=== PATIENT | male | born 1970 | race African-American/Black ===

== ENCOUNTER 2022-02-03 12:43 | Emergency (ER) | payer SELFPAY ==
[~2022-02-03] VITALS: Ht 177.8 cm; Wt 98.6 kg
[~2022-02-03 12:43] MED LIST: ACET-2066 PO; CETI10CA PO; INSU100I17 SQ; INSU100I27 SQ; LISI20TA18 PO; METO50TA29 PO; TRIA1TAB5 PO
[2022-02-03] MEDS ORDERED: ASPIRIN CHEWABLE 81 MG TABLET. ONE (13:14)
[2022-02-03] MEDS ORDERED: NITROGLYCERIN SUBLINGUAL 0.4 MG BOTTLE OF 25. SL ONE (13:14)
[2022-02-03] MEDS ORDERED: HEPARIN 25,000UTS/250ML PREMIX 250 ML IV ONE (13:14)
[2022-02-03] MEDS ORDERED: HEPARIN 25,000UTS/250ML PREMIX 250 ML IV PRN (13:15)
[2022-02-03] MEDS ORDERED: ASPIRIN CHEWABLE 81 MG TABLET. PO ONE (13:15)
[2022-02-03] MEDS ORDERED: HEPARIN for IV BOLUS 10,000 UNIT/10 ML VIAL. IV PRN (13:15)
[2022-02-03] MEDS ORDERED: HEPARIN for IV BOLUS 10,000 UNIT/10 ML VIAL. IV ONE (13:15)
[2022-02-03] MEDS ORDERED: NITROGLYCERIN SUBLINGUAL 0.4 MG BOTTLE OF 25. SL PRN (13:15)
[2022-02-03 13:21] VITALS: BP 202/112
[2022-02-03 13:28] LABS: BASO # 0.1 x10^3/uL (0.0-0.2); BASO % 1 % (0-3); EOS # 0.1 x10^3/uL (0.0-0.7); EOS % 1 % (0-3); HEMATOCRIT 35.9 % (39.0-53.0); HEMOGLOBIN 11.5 g/dL (13.0-17.5); LYMPH # 1.3 x10^3/uL (1.0-4.8); LYMPH % 13 % (24-48); MEAN CORPUSCULAR HEMOGLOBIN 26 pg (25-35); MEAN CORPUSCULAR HGB CONC 32 g/dL (31-37); MEAN CORPUSCULAR VOLUME 81 fL (79-100); MONO # 0.5 x10^3/uL (0.0-1.1); MONO % 5 % (0-9); NEUT # 7.9 x10^3uL (1.8-7.7); NEUT % 80 % (31-73); PLATELET COUNT 376 x10^3/uL (140-400); RED BLOOD COUNT 4.42 x10^6/uL (4.30-5.70); RED CELL DISTRIBUTION WIDTH 14.4 % (11.5-14.5); WHITE BLOOD COUNT 9.9 x10^3/uL (4.0-11.0)
[2022-02-03 13:35] LABS: CALCIUM 9.1 mg/dL (8.5-10.1); CREATININE 2.1 mg/dL (0.7-1.3); GFR 40.2; POTASSIUM 5.6 mmol/L (3.5-5.1)
[2022-02-03 13:41] LABS: ALBUMIN 3.1 g/dL (3.4-5.0); ALBUMIN/GLOBULIN RATIO 0.8 (1.0-1.7); TOTAL BILIRUBIN 0.2 mg/dL (0.2-1.0); TOTAL PROTEIN 6.9 g/dL (6.4-8.2)
--- NOTE | 2022-02-03 13:44 | PHYS DOC ---
General Adult EDM: Chief Complaint: HYPERTENSION HPI: HPI: Patient is a 51-year-old male who presents to the emergency department today for multiple complaints. Patient reports that he was outside picking up a heavy trash can when he started experiencing midsternal chest tightness that lasted approximately 45 minutes. He also reports feeling lightheaded, diaphoretic and nauseous and had an episode of vomiting. Patient believes that his blood sugar was low so he went in and ate food. He reports that his chest pain resolved but he is now experiencing epigastric abdominal pain. He states that the lightheadedness and the nausea has resolved. He denies any fevers. He rates his pain 7 out of 10. He reports that EMS was called for his chest pain and an EKG was performed which he stated they reported was normal. Patient does have a history of hypertension and takes triamterene and lisinopril. He is also diabetic and takes Tresiba and NovoLog. Patient's blood pressure is elevated in the ER. (SILVER BENITEZ APRN) Review of Systems: Review of Systems: Constitutional: See HPI Eyes: Denies change in visual acuity HENT: Denies nasal congestion or sore throat Respiratory: See HPI Cardiovascular: See HPI GI: See HPI : Denies dysuria Musculoskeletal: Denies back pain or joint pain Integument: Denies rash Neurologic: See HPI Endocrine: Denies polyuria or polydipsia Lymphatic: Denies swollen glands Psychiatric: Denies depression or anxiety (SILVER BENITEZ APRN) Current Medications: Current Meds: Current Medications Medications (Trade) Dose Ordered Sig/Kwame Start Time Stop Time Status Last Admin Dose Admin Aspirin (Aspirin Chewable) 324 mg 1X ONCE 02/03/22 13:15 02/03/22 13:29 DC 02/03/22 13:20 324 MG Heparin Sodium (Porcine) (Heparin Sodium) 2,450 unit PRN Q6HRS PRN 02/03/22 13:15 Heparin Sodium/ Dextrose 250 ml @ 10 mls/hr CONT PRN 02/03/22 13:15 02/03/22 13:28 10 MLS/HR Nitroglycerin (Nitrostat) 0.4 mg PRN Q5MIN PRN 02/03/22 13:15 02/04/22 13:14 02/03/22 13:21 0.4 MG (ELI,SILVER L ANESTHESIA DIRECTOR) Allergies: Allergies: Allergies Coded Allergies Type Severity Reaction Last Updated Verified Penicillins Allergy Intermediate 11/07/16 Yes (SILVER BENITEZ APRN) Physical Exam: PE: Constitutional: Well developed, well nourished, no acute distress, non-toxic appearance. [] HENT: Normocephalic, atraumatic, bilateral external ears normal, oropharynx moist, no oral exudates, nose normal. [] Eyes: PERRL, EOMI, conjunctiva normal, no discharge. [] Neck: Normal range of motion, no tenderness, supple, no stridor. [] Cardiovascular:Heart rate tachycardic rhythm, no murmur [] Lungs & Thorax: Bilateral breath sounds clear to auscultation [] Abdomen: Bowel sounds normal, soft, no tenderness, no masses, no pulsatile masses. [] Skin: Warm, dry, no erythema, no rash. [] Back: No tenderness, normal range of motion Extremities: No tenderness, no cyanosis, no clubbing, ROM intact, no edema. [] Neurologic: Alert and oriented X 3, normal motor function, normal sensory function, no focal deficits noted. [] Psychologic: Affect normal, judgement normal, mood normal. [] (SILVER BENITEZ APRN) Current Patient Data: Labs: Laboratory Tests Test 02/03/22 12:57 02/03/22 13:11 Glucose (Fingerstick) 205 mg/dL (70-99) H White Blood Count 9.9 x10^3/uL (4.0-11.0) Red Blood Count 4.42 x10^6/uL (4.30-5.70) Hemoglobin 11.5 g/dL (13.0-17.5) L Hematocrit 35.9 % (39.0-53.0) L Mean Corpuscular Volume 81 fL (79-100) Mean Corpuscular Hemoglobin 26 pg (25-35) Mean Corpuscular Hemoglobin Concent 32 g/dL (31-37) Red Cell Distribution Width 14.4 % (11.5-14.5) Platelet Count 376 x10^3/uL (140-400) Neutrophils (%) (Auto) 80 % (31-73) H Lymphocytes (%) (Auto) 13 % (24-48) L Monocytes (%) (Auto) 5 % (0-9) Eosinophils (%) (Auto) 1 % (0-3) Basophils (%) (Auto) 1 % (0-3) Neutrophils # (Auto) 7.9 x10^3uL (1.8-7.7) H Lymphocytes # (Auto) 1.3 x10^3/uL (1.0-4.8) Monocytes # (Auto) 0.5 x10^3/uL (0.0-1.1) Eosinophils # (Auto) 0.1 x10^3/uL (0.0-0.7) Basophils # (Auto) 0.1 x10^3/uL (0.0-0.2) Vital Signs: Vital Signs Date Time Temp Pulse Resp B/P (MAP) Pulse Ox O2 Delivery O2 Flow Rate FiO2 02/03/22 13:21 98 202/112 (SILVER BENITEZ APRN) EKG: EKG: [] (SILVER BENITEZ APRN) Radiology/Procedures: Radiology/Procedures: [] (SILVER BENITEZ APRN) Heart Score: C/O Chest Pain: Yes HEART Score for Chest Pain: HEART Score for Chest Pain Response (Comments) Value History Highly Suspicious [address] Depression 2 Age >45 - < 65 1 Risk Factors >3 Risk Factors or Hx CAD 2 Total 7 Risk Factors: Risk Factors: DM, Current or recent (<one month) smoker, HTN, HLP, family history of CAD, obesity. Risk Scores: Score 0 - 3: 2.5% MACE over next 6 weeks - Discharge Home Score 4 - 6: 20.3% MACE over next 6 weeks - Admit for Clinical Observation Score 7 - 10: 72.7% MACE over next 6 weeks - Early Invasive Strategies (SILVER BENITEZ APRN) Course & Med Decision Making: Course & Med Decision Making Pertinent Labs and Imaging studies reviewed. (See chart for details) [] Patient presents to the emergency department for chest pain associated with diaphoresis, lightheadedness and nausea and vomiting. Patient is currently complaining of epigastric abdominal pain. Patient's risk factors are obesity, hypertension and diabetes. His EKG shows significant ST changes. The crisis manager, Dr. Martinez at [facility] was consulted. A STEMI was called. Patient was attached to the code cart and pads were placed. Nitroglycerin, aspirin and heparin was ordered for patient. Patient's blood pressure was mildly improved with the nitroglycerin. Patient continues to have mild epigastric pain. Patient was noted to have an EKG change at 1322, this was sent to the crisis manager. [employer] WORK[employer] LEADER gave report to Tie Bucker RN. Patient was transferred emergently to [facility] for immunization. Dr. Burrows excepted patient under his services .[id number] (SILVER BENITEZ APRN) [place] Disclaimer: [place] Disclaimer: This electronic medical record was generated, in whole or in part, using a voice recognition dictation system. (SILVER BENITEZ APRN) Attending Co-Sign The patient was seen and interviewed as well as examined at the bedside. The chart was reviewed. The case was discussed. Agree with the plan of care. (LIYAH CASSIDY DO) Departure Departure: Impression: Primary Impression: STEMI (ST elevation myocardial infarction) Qualified Codes: I21.3 - ST elevation (STEMI) myocardial infarction of unspecified site Disposition: 02 SHORT TERM HOSPITAL Condition: GUARDED Referrals: PCP,NO (PCP) SILVER BENITEZ APRN February 03, 2022 13:44 LIYAH CASSIDY DO February 04, 2022 07:04
--- NOTE | 2022-02-03 13:55 | RAD ---
INDICATION: Reason: chest pain / Spl. Instructions: / History: COMPARISON: October 2016 FINDINGS: Frontal view of chest obtained. Cardiomediastinal silhouette is unremarkable. There is some relative haziness at the left lower lung. No gross osseous destructive lesion. IMPRESSION: * Relative haziness at the left lower lung which could be secondary to overlap of soft tissue struct ures but a focus of atelectasis or infiltrate could have this appearance and would correlate with sym ptoms. Electronically signed by: Vicente Mcintyre MD (02/03/2022 1:52 PM) [id number]
== END 2022-02-03 13:40 | disposition short-term general hospital (02) ==
LOC: ER 12:43
DX: I21.3 ST elevation (STEMI) myocardial infarction of unspecified site (principal); I10 Essential (primary) hypertension
CPT/HCPCS: 36415; 71045; 80053; 82947; 84484; 85025; 85610; 85730; 93005; 96365; 96376; 99285; J1644